=== PATIENT | female | born 1945 | race Caucasian/White ===

== ENCOUNTER 2025-05-08 10:37 | Outpatient (CLI) | payer MEDICARE, SELFPAY ==
--- OUTSIDE RECORDS SUMMARY | 2024-11-29 16:30 | XMS_ITS ---
Author Organization [facility] Address [address] [place] [address] Care Team Providers Care Wood Type Finisher Name Role Phone Migration, Provider Unavailable Unavailable REASON FOR VISIT [facility] To [facility] Conversion Encounter Medications Medication SIG (Take, Route, Frequency, Duration) Notes Start Date End Date Status Effexor XR 150 MG Capsule Extended Release 24 Hour 1 cap(s) orally once a day Active Percocet 10-325 MG Tablet 1 tab(s) orally every 6 hours PRN Active Lotensin 20 MG Tablet 1 tab(s) orally on ce a day Active Pravachol 40 MG TABLET 1 TAB(S) ORALLY ONCE A DAY AT NIGHT *Please review and pick correct strength-formulat ion from FileThis options. If intended option is not shown, discontinue and re-order from Quick Search* Active Actos 45 MG Tablet 1 tab(s) orally once a day Active Melatonin 5 MG Capsule 1 cap(s) orally once a day (at bedtime) Active Enoxaparin Sodium 40 MG/0.4 ML SOLUTION DIRECTED SUBCUTANEOUSLY ONCE A DAY *Please review and pick correct strength-formulat ion from FileThis options. If intended option is not shown, discontinue and re-order from Quick Search* Active MIRALAX (OBSOLETE) *Please revie w for potential replacement for e-prescription and drug interaction check* Active Albuterol Sulfate HFA 108 (90 Base) MCG/ACT Aerosol Solution 2 puff(s) inhaled 4 times a day Active Gabapentin 300 MG Capsule 1 cap(s) orally 2 times a day Active Cyanocobalamin 250 MCG Tablet 2 tab(s) orally once a day Active Aspirin EC 325 MG DELAYED RELEASE TABLET 1 TAB(S) ORALLY ONCE A DAY *Please review and pick correct strength-formulat ion from FileThis options. If intended option is not shown, discontinue and re-order from Quick Search* Active Encounters Encounter Location Date Provider Diagnosis [address] [address] 11/29/2024 Provider Migration Plan Of Treatment No Information Progress Notes * Tamica DOMINGUEZ LDOB:1945 (79 yo F)Acc No.[id number]:11/29/2024 Patient: Tamica Perez Provider: :1945 A ge:79 Y S ex:Female Date:11/29/2024 [facility] Subjective: * Chief Complaints: * M [facility] To [facility] Conversion Encounter * Medications: T akingAspirin EC 325 MG DELAYED RELEASE TABLET 1 TAB(S) ORALLY ONCE A DAY , Notes to Pharmacist: *Please review and pick correct strength-formulation from FileThis options. If intended option is not shown, discontinue and re-order from Quick Search*Cyanocobalamin 250 MCG Tablet 2 tab(s) orally once a day Enoxaparin Sodium 40 MG/0.4 ML SOLUTION DIRECTED SUBCUTANEOUSLY ONCE A DAY , Notes to Pharmacist: *Please review and pick correct strength-formulation from FileThis options. If intended option is not shown, discontinue and re-order from Quick Search*Melatonin 5 MG Capsule 1 cap(s) orally once a day (at bedtime) MIRALAX (OBSOLETE) , Notes to Pharmacist: *Please review for potential replacement for e-prescription and drug interaction check*Gabapentin 300 MG Capsule 1 cap(s) orally 2 times a day Albuterol Sulfate HFA 108 (90 Base) MCG/ACT Aerosol Solution 2 puff(s) inhaled 4 times a day Lotensin 20 MG Tablet 1 tab(s) orally once a day Percocet 10-325 MG Tablet 1 tab(s) orally every 6 hours PRN Actos 45 MG Tablet 1 tab(s) orally once a day Pravachol 40 MG TABLET 1 TAB(S) ORALLY ONCE A DAY AT NIGHT , Notes to Pharmacist: *Please review and pick correct strength-formulation from FileThis options. If intended option is not shown, discontinue and re-order from Quick Search*Effexor XR 150 MG Capsule Extended Release 24 Hour 1 cap(s) orally once a day Taking Aspirin EC 325 MG DELAYED RELEASE TABLET 1 TAB(S) ORALLY ONCE A DAY , Notes to Pharmacist: *Please review and pick correct strength-formulation from Tubisspan options. If intended option is not shown, discontinue and re-order from Quick Search*Taking Cyanocobalamin 250 MCG Tablet 2 tab(s) orally once a day Taking Enoxaparin Sodium 40 MG/0.4 ML SOLUTION DIRECTED SUBCUTANEOUSLY ONCE A DAY , Notes to Pharmacist: *Please review and pick correct strength-formulation from Tubisspan options. If intended option is not shown, discontinue and re-order from Quick Search*Taking Melatonin 5 MG Capsule 1 cap(s) orally once a day (at bedtime) Taking MIRALAX (OBSOLETE) , Notes to Pharmacist: *Please review for potential replacement for e-prescription and drug interaction check*Taking Gabapentin 300 MG Capsule 1 cap(s) orally 2 times a day Taking Albuterol Sulfate HFA 108 (90 Base) MCG/ACT Aerosol Solution 2 puff(s) inhaled 4 times a day Taking Lotensin 20 MG Tablet 1 tab(s) orally once a day Taking Percocet 10-325 MG Tablet 1 tab(s) orally every 6 hours PRN Taking Actos 45 MG Tablet 1 tab(s) orally once a day Taking Pravachol 40 MG TABLET 1 TAB(S) ORALLY ONCE A DAY AT NIGHT , Notes to Pharmacist: *Please review and pick correct strength-formulation from Tubisspan options. If intended option is not shown, discontinue and re-order from Quick Search*Taking Effexor XR 150 MG Capsule Extended Release 24 Hour 1 cap(s) orally once a day * Electronic signature of Prov ider Migration on 05/08/2025 at 10:43 AM EST Sign off status: Pending * Provider: Date: 0 11/29/2024 Generated for Savanah irving/Isaiah/Demi on: 07/08/2024 10:43 AM EST
--- NOTE | 2025-05-08 10:40 | US_ITS ---
Ultrasound Sonograher: PROCEDURE: US TRANSVAGINAL CLINICAL INDICATION: TRANSVAGINAL PELVIS COMPARISON: No exams were available for comparison FINDINGS: Transvaginal sonographic images of the pelvis were obtained. UTERUS: The uterus is surgically absent The vaginal vault is intact. The bladder is incompletely emptied. There is possible sludge within the bladder inferiorly. There is a small hyperechoic area in the lower bladder as well that has posterior shadowing. LEFT OVARY: Not visualized RIGHT OVARY: Not visualized Both ovaries are not seen There is no fluid in the cul-de-sac. IMPRESSION: 1. The uterus is surgically absent. The vaginal vault is intact. 2. The ovaries are not visualized. 3. There is no fluid in the cul-de-sac. 4. There is incomplete emptying of the bladder. There appears to be a small amount of sludge in the inferior aspect of the bladder. There is a small hyperechoic area in the inferior bladder with posterior shadowing. 5. Would suggest a urology consult. Dictated by: Donaldo Prado MD 05/08/2025 17:03 Donaldo Prado MD in OV 05/08/2025 17:03
--- OUTSIDE RECORDS SUMMARY | 2025-05-08 10:43 | XMS_ITS | Patient Health Record ---
Author Organization [facility] Address [address] [place] [address] Care Team Providers Care Sterile Tech Name Role Phone Migration, Provider Unavailable Unavailable Reason For Referral No Information Medications Medication SIG (Take, Route, Frequency, Duration) Notes Start Date End Date Status Cyanocobalamin 250 MCG Tablet 2 tab(s) orally once a day Active Aspirin EC 325 MG DELAYED RELEASE TABLET 1 TAB(S) ORALLY ONCE A DAY *Please review and pick correct strength-formulat ion from Medallia options. If intended option is not shown, discontinue and re-order from Quick Search* Active Effexor XR 150 MG Capsule Extended Release 24 Hour 1 cap(s) orally once a day Active Melatonin 5 MG Capsule 1 cap(s) orally once a day (at bedtime) Active Enoxaparin Sodium 40 MG/0.4 ML SOLUTION DIRECTED SUBCUTANEOUSLY ONCE A DAY *Please review and pick correct strength-formulat ion from Medallia options. If intended option is not shown, discontinue and re-order from Quick Search* Active Percocet 10-325 MG Tablet 1 tab(s) orally every 6 hours PRN Active Lotensin 20 MG Tablet 1 tab(s) orally on ce a day Active Pravachol 40 MG TABLET 1 TAB(S) ORALLY ONCE A DAY AT NIGHT *Please review and pick correct strength-formulat ion from Medallia options. If intended option is not shown, discontinue and re-order from Quick Search* Active Actos 45 MG Tablet 1 tab(s) orally once a day Active MIRALAX (OBSOLETE) *Please revie w for potential replacement for e-prescription and drug interaction check* Active Albuterol Sulfate HFA 108 (90 Base) MCG/ACT Aerosol Solution 2 puff(s) inhaled 4 times a day Active Gabapentin 300 MG Capsule 1 cap(s) orally 2 times a day Active Social History Section Notes: Never smoked Denies drug or alcohol use Full code [place] at Citation Problems Problem Type SNOMED Code ICD Code Onset Dates Problem Status W/U Status Risk Notes Problem Displaced intertrochanteric fracture of right femur, subsequent encounter for closed fracture with routine healing (S72.141D) Active confirmed Problem Chronic obstructive pulmonary disease (29008675) Chronic obstructive pulmonary disease, unspecified (J44.9) Active confirmed Problem Chronic kidney disease stage 3 (disorder) (078448137) Chronic kidney disease, stage 3 (moderate) (N18.3) Active confirmed Problem 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 [address] [place] [address] [id number] Tamica Chan Self - patient is the insured Medical (General) History Medical History History ICD Code Back pain Chronic narcotic use Chronic kidney disease Depression Diabetes mellitus Dyspepsia Fatigue GERD HLD HTN Joint Pain Morbid obesity Neuropathy Surgical History Surgery Date(Month/Year) Back surgery nerve stimulator implant 20 13 Endoscopy Gastric banding removal Lap Gastric banding Lap Cholecystectomy Lap hysterectomy Shoulder surgery Tubal Abdominal Ligation Hospitalization History Reason Date(Month/Year) 05/2019
== END 2025-05-08 23:59 | disposition home or self-care (01) ==
LOC: RAD 10:38
PROVIDERS: PCP Internal Medicine Adolescent Medicine; Visit Provider Nurse Practitioner Family
DX: N32.89 Other specified disorders of bladder (principal); R93.41 Abnormal radiologic findings on diagnostic imaging of renal pelvis, ureter, or bladder; R33.9 Retention of urine, unspecified; N93.9 Abnormal uterine and vaginal bleeding, unspecified; Z90.710 Acquired absence of both cervix and uterus
CPT/HCPCS: 76830